=== PATIENT | female | born 1995 | race Two or more races ===

== ENCOUNTER 2021-05-05 00:34 | Inpatient (IN) | payer SELFPAY ==
[~2021-05-05] VITALS: Ht 162.6 cm; Wt 71.0 kg
[2021-05-05] MEDS ORDERED: IV RINGERS,LACTATED 1000ML 1,000 ML IV SCH ×2 (00:45→02:00)
[2021-05-05 01:13] LABS: AMORPHOUS SEDIMENT,UR PRESENT /HPF; BACTERIA,URINE MODERATE /HPF (0-FEW); RBC,URINE 20-40 /HPF (0-2); WBC,URINE TNTC /HPF (0-4)
[2021-05-05 01:15] LABS: AMPHETAMINE/METHAMPHETAMINE NEG (NEG); BARBITURATES NEG (NEG); BENZODIAZEPINES NEG (NEG); CANNABINOIDS NEG (NEG); COCAINE NEG (NEG); METHADONE NEG (NEG); OPIATES NEG (NEG); PHENCYCLIDINE NEG (NEG)
[2021-05-05] MEDS ORDERED: 0.9 % SODIUM CHLORIDE 10 ML DISP.SYRIN. IV PRN ×2 (02:00→12:30)
[2021-05-05] MEDS ORDERED: TERBUTALINE 1 MG/ML VIAL. SQ PRN (02:00)
[2021-05-05] MEDS ORDERED: LIDOCAINE 1% PF 30 ML VIAL. INJ PRN (02:00)
[2021-05-05] MEDS ORDERED: ACETAMINOPHEN 325 MG TABLET. PO PRN (02:00)
[2021-05-05] MEDS ORDERED: BUTORPHANOL 2 MG/ML VIAL. IVP PRN ×2 (02:00)
[2021-05-05] MEDS ORDERED: OXYTOCIN 30 UNIT/500 ML PREMIX 500 ML IV PRN ×3 (02:00→12:30)
[2021-05-05] MEDS ORDERED: ROPIVacaine 0.2% PF 10 ML VIAL. ONE ×2 (02:14→02:30)
[2021-05-05] MEDS ORDERED: L&D EPIDURAL SYRINGE 50 ML ONE (02:15)
[2021-05-05] MEDS ORDERED: fentaNYL PF VIAL 100 MCG/2 ML VIAL ONE (02:16)
[2021-05-05 02:17] LABS: BASO % 0 % (0-3); EOS % 0 % (0-3); HEMATOCRIT 40.1 % (36.0-47.0); HEMOGLOBIN 13.5 g/dL (12.0-15.5); LYMPH # 2.6 x10^3/uL (1.0-4.8); LYMPH % 14 % (24-48); MEAN CORPUSCULAR HEMOGLOBIN 30 pg (25-35); MEAN CORPUSCULAR HGB CONC 34 g/dL (31-37); MEAN CORPUSCULAR VOLUME 90 fL (79-100); MONO # 1.3 x10^3/uL (0.0-1.1); MONO % 7 % (0-9); NEUT # 15.4 x10^3/uL (1.8-7.7); NEUT % 79 % (31-73); PLATELET COUNT 309 x10^3/uL (140-400); RED BLOOD COUNT 4.46 x10^6/uL (3.50-5.40); RED CELL DISTRIBUTION WIDTH 13.5 % (11.5-14.5); WHITE BLOOD COUNT 19.5 x10^3/uL (4.0-11.0)
[2021-05-05] MEDS ORDERED: PENICILLIN G K 5,000,000 UNIT in IV DEXTROSE 5% 100ML 100 ML IV ONE (03:00)
[2021-05-05 04:21] LABS: % BANDS 4 % (0-9); % LYMPHS 14 % (24-48); % MONOS 6 % (0-10); % SEGS 76 % (35-66); PLT ESTIMATE ADEQUATE (ADEQUATE); TOXIC GRANULATION SLIGHT
[2021-05-05 06:25] VITALS: BP 105/71
[2021-05-05] MEDS ORDERED: PENICILLIN G K 2,500,000 UNIT in IV DEXTROSE 5% 50 ML IV SCH (07:00)
[2021-05-05 08:30] VITALS: BP 111/77
--- NOTE | 2021-05-05 10:08 | PDOC1 ---
COMPUTER GAME TESTER H&P Date of Admission: Date of Admission: May 05, 2021 at 03:26 History of Present Illness: EDC: 05/29/21 LMP: 08/22/20 25y @ 36.4 by L=24 presents to L&D with ctxs. The pt was found to be 4 cm on presentation. After an hour the pt progressed to 5 cm. A short time later the pt experienced SROM and ultimately delivered a short time later. PMH: PCOS, Anxiety and depression PSH: Denies Meds: PNV, Doxylamine, Pyridoxine All: NKDA OBHx: G1 SH: no tob, no EtOH FH: CAD Medications: Meds: Current Medications Medications (Trade) Dose Ordered Sig/Isaias Route PRN Reason Start Time Stop Time Status Last Admin Dose Admin Ringer's Solution 1,000 ml @ 125 mls/hr Q8H IV 05/05/21 00:45 05/05/21 09:58 DC 05/05/21 02:28 Butorphanol Tartrate (Stadol) 2 mg PRN Q1HR PRN IVP Severe labor pain 05/05/21 02:00 05/05/21 09:58 DC 05/05/21 02:40 Oxytocin 500 ml @ 0 mls/hr CONT PRN IV SEE I/O RECORD 05/05/21 02:00 05/05/21 09:58 DC 05/05/21 06:12 Penicillin G Potassium [id number] unit/Dextrose 100 ml @ 100 mls/hr 1X ONCE IV 05/05/21 03:00 05/05/21 03:59 DC 05/05/21 02:29 Allergies: Coded Allergies: No Known Drug Allergies (Unverified , 05/05/21) Physical Exam: Vital Signs: Vital Signs Date Time Temp Pulse Resp B/P (MAP) Pulse Ox O2 Delivery O2 Flow Rate FiO2 05/05/21 06:25 98.0 101 105/71 (82) 98 Room Air 98.0 05/05/21 02:40 22 PE: GENERAL: No apparent distress. Alert and oriented. HEENT: Head normocephalic, atraumatic. NECK: Supple LUNGS: Clear to auscultation. HEART: RRR, S1, S2 present, pulses intact ABDOMEN: Soft, positive bowel sounds. EXTREMITIES: No cyanosis or edema. NEUROLOGIC: Normal speech, normal tone PSYCHIATRIC: Normal affect, normal mood. SKIN: No ulceration. FHT: 140s +acels/occ variable decels/mLTV [place]: 1-2 min SVE: 490/0 Labs: Laboratory Tests Test 05/05/21 00:50 05/05/21 01:31 05/05/21 08:25 Urine Collection Type Unknown Urine Color (Auto) Yellow Urine Turbidity Hazy Urine pH (Auto) 5.5 (<5.0-8.0) Urine Specific [place] 1.014 (1.000-1.030) Urine Protein (Auto) Negative mg/dL (Negative) Urine Glucose (Auto)(UA) Negative mg/dL (Negative) Urine Ketones (Auto) Negative mg/dL (Negative) Urine Blood (Auto) Large (Negative) Urine Nitrite Negative (Negative) Urine Bilirubin (Auto) Negative (Negative) Urine Urobilinogen (Auto) Normal mg/dL (Normal) Urine Leukocyte Esterase (Auto) Large (Negative) Urine RBC 20-40 /HPF (0-2) Urine WBC Tntc /HPF (0-4) Urine Squamous Epithelial Cells Many /LPF Urine Amorphous Sediment Present /HPF Urine Bacteria Moderate /HPF (0-FEW) Urine Mucus Mod /LPF Urine Opiates Screen Neg (NEG) Urine Methadone Screen Neg (NEG) Urine Barbiturates Neg (NEG) Urine Phencyclidine Screen Neg (NEG) Urine Amphetamine/Methamphetamine Neg (NEG) Urine Benzodiazepines Screen Neg (NEG) Urine Cocaine Screen Neg (NEG) Urine Cannabinoids Screen Neg (NEG) Urine Ethyl Alcohol Neg (NEG) White Blood Count 19.5 x10^3/uL (4.0-11.0) H Red Blood Count 4.46 x10^6/uL (3.50-5.40) Hemoglobin 13.5 g/dL (12.0-15.5) Hematocrit 40.1 % (36.0-47.0) Mean Corpuscular Volume 90 fL (79-100) Mean Corpuscular Hemoglobin 30 pg (25-35) Mean Corpuscular Hemoglobin Concent 34 g/dL (31-37) Red Cell Distribution Width 13.5 % (11.5-14.5) Platelet Count 309 x10^3/uL (140-400) Neutrophils (%) (Auto) 79 % (31-73) H Lymphocytes (%) (Auto) 14 % (24-48) L Monocytes (%) (Auto) 7 % (0-9) Eosinophils (%) (Auto) 0 % (0-3) Basophils (%) (Auto) 0 % (0-3) Neutrophils # (Auto) 15.4 x10^3/uL (1.8-7.7) H Lymphocytes # (Auto) 2.6 x10^3/uL (1.0-4.8) Monocytes # (Auto) 1.3 x10^3/uL (0.0-1.1) H Eosinophils # (Auto) 0.0 x10^3/uL (0.0-0.7) Basophils # (Auto) 0.0 x10^3/uL (0.0-0.2) Segmented Neutrophils % 76 % (35-66) H Band Neutrophils % 4 % (0-9) Lymphocytes % 14 % (24-48) L Monocytes % 6 % (0-10) Toxic Granulation Slight Platelet Estimate Adequate (ADEQUATE) Treponema pallidum Antibody Nonreactive (Nonreactive) SARS-CoV-2 Antigen (Rapid) Negative (NEGATIVE) Laboratory Tests 05/05/21 01:31 Laboratory Tests 05/05/21 01:31 Assessment & Plan: A/P 25y @ 36.4 by L=24 1.) Active labor 2.) Brielle NI 3.) Flu vaccine given 12/17/20 4.) TDAP given 03/12/21 5.) Elevated GTT - 0 of 4 values of 3hr GTT elevated 6.) Fetus cat I FHT 7.) GBS pending will start PCN since CORNELIO CHOI MD May 05, 2021 10:08
--- NOTE | 2021-05-05 10:20 | PDOC4 ---
VAGINAL DELIVERY DATE DATE: 05/05/21 TIME: 10:18 TIME Patient delivered a viable male infant over intact perineum at 0326. Wt 5 lb 15 oz. Apgars 8/9. Placenta delivered spontaneously, intact with 3VC. No lacerations noted. Good hemostasis noted. 20 U of Pit given with IVF. EBL 200 cc. WEIGHT Weight [ ] CORNELIO CHOI MD May 05, 2021 10:20
[2021-05-05] MEDS ORDERED: PHENYLEPH/MINERAL OIL/PETROLAT RECTAL OINTMENT TUBE. RC PRN (12:30)
[2021-05-05] MEDS ORDERED: MMR per PROTOCOL. MC PRN (12:30)
[2021-05-05] MEDS ORDERED: MAGNESIUM HYDROXIDE 2,400 MG/30 ML ORAL.SUSP. PO PRN (12:30)
[2021-05-05] MEDS ORDERED: HYDROCORTISONE 1% TOPICAL OINTMENT 30GM TUBE. TP PRN (12:30)
[2021-05-05] MEDS ORDERED: oxyCODONE/APAP 5/325 1 TAB TABLET PO PRN (12:30)
[2021-05-05] MEDS ORDERED: ZOLPIDEM 5 MG TABLET. PO PRN (12:30)
[2021-05-05] MEDS ORDERED: BENZOCAINE 20% TOPICAL AEROSOL SPRAY 57GM CAN. TP PRN (12:30)
[2021-05-05] MEDS ORDERED: diphenhydrAMINE HCL 25 MG CAPSULE PO PRN (12:30)
[2021-05-05] MEDS ORDERED: MAG HYDROX/ALUMINUM HYD/SIMETH 30 ML ORAL.SUSP PO PRN (12:30)
[2021-05-05] MEDS ORDERED: TDaP (BOOSTRIX) per PROTOCOL. MC PRN (12:30)
[2021-05-05] MEDS ORDERED: SIMETHICONE 80 MG TAB.CHEW PO PRN (12:30)
[2021-05-05] MEDS: DOCUSATE SODIUM 100 MG CAPSULE. PO PRN (12:56)
[2021-05-05] MEDS: IBUPROFEN 400 MG TABLET. PO PRN (12:56)
[2021-05-05 13:00] VITALS: BP 105/68
[2021-05-05] MEDS: ACETAMINOPHEN 325 MG TABLET. PO PRN ×2 (13:17→19:37)
[2021-05-05 17:26] VITALS: BP 107/68
[2021-05-05 19:36] VITALS: BP 107/64
[2021-05-05 23:50] VITALS: BP 104/69
[2021-05-06] MEDS: ACETAMINOPHEN 325 MG TABLET. PO PRN (04:17)
[2021-05-06] MEDS: IBUPROFEN 400 MG TABLET. PO PRN ×3 (04:17→21:46)
[2021-05-06 04:20] VITALS: BP 98/59
[2021-05-06] MEDS ORDERED: FERROUS SULFATE 325 MG TABLET. PO SCH (08:00)
[2021-05-06 08:39] LABS: HEMATOCRIT 31.1 % (36.0-47.0); HEMOGLOBIN 10.2 g/dL (12.0-15.5); RED BLOOD COUNT 3.47 x10^6/uL (3.50-5.40); RED CELL DISTRIBUTION WIDTH 13.8 % (11.5-14.5); WHITE BLOOD COUNT 14.4 x10^3/uL (4.0-11.0)
[2021-05-06 08:40] VITALS: BP 109/75
[2021-05-06] MEDS: DOCUSATE SODIUM 100 MG CAPSULE. PO PRN (09:06)
[2021-05-06] MEDS: PRENATAL MULTIVITAMIN TABLET. PO SCH (09:06)
--- NOTE | 2021-05-06 11:43 | PDOC ---
WELDING MACHINE OPERATOR RESISTANCE PROGRESS NOTE Date of Service: DATE: 05/06/21 TIME: 11:42 Subjective: Pt with good pain control. Reed PO. Voiding. Minimal lochia. Objective: Vital Signs: Vital Signs Date Time Temp Pulse Resp B/P (MAP) Pulse Ox O2 Delivery O2 Flow Rate FiO2 05/05/21 08:30 98.5 114 18 111/77 (88) Room Air 98.5 05/05/21 12:26 98 Vital Signs Date Time Temp Pulse Resp B/P (MAP) Pulse Ox O2 Delivery O2 Flow Rate FiO2 05/06/21 08:40 98.2 104 20 109/75 (86) 99 Room Air 98.2 Labs: Laboratory Tests Test 05/06/21 08:10 White Blood Count 14.4 x10^3/uL (4.0-11.0) H Red Blood Count 3.47 x10^6/uL (3.50-5.40) L Hemoglobin 10.2 g/dL (12.0-15.5) L Hematocrit 31.1 % (36.0-47.0) L Mean Corpuscular Volume 90 fL (79-100) Mean Corpuscular Hemoglobin 29 pg (25-35) Mean Corpuscular Hemoglobin Concent 33 g/dL (31-37) Red Cell Distribution Width 13.8 % (11.5-14.5) Platelet Count 273 x10^3/uL (140-400) Laboratory Tests 05/06/21 08:10 Laboratory Tests 05/06/21 08:10 Physical Exam: GENERAL: No apparent distress. Alert and oriented. HEENT: Head normocephalic, atraumatic. NECK: Supple LUNGS: Clear to auscultation. HEART: RRR, S1, S2 present, pulses intact ABDOMEN: Soft, positive bowel sounds. EXTREMITIES: No cyanosis or edema. NEUROLOGIC: Normal speech, normal tone PSYCHIATRIC: Normal affect, normal mood. SKIN: No ulceration. FFNT below umb No C/C/E Assessment & Plan: A/P 25y PPD #1 s/p 1.) PP doing well 2.) Fever within first 24hrs of delivery, AF since 3.) Hgb 13.5 -> 10.2 4.) Brielle NI 5.) Flu vaccine given 12/17/20 6.) TDAP given 03/12/21 7.) Cont PP care CORNELIO CHOI MD May 06, 2021 11:43
[2021-05-06 15:55] VITALS: BP 107/75
[2021-05-06 21:35] VITALS: BP 107/73
[2021-05-07 05:25] VITALS: BP 100/68
[2021-05-07] MEDS: IBUPROFEN 400 MG TABLET. PO PRN ×2 (05:41→18:12)
[2021-05-07 08:30] VITALS: BP 110/77
[2021-05-07] MEDS: PRENATAL MULTIVITAMIN TABLET. PO SCH (09:13)
[2021-05-07 13:59] VITALS: BP 105/65
--- NOTE | 2021-05-07 17:35 | PDOC ---
OIL CHANGE TECHNICIAN PROGRESS NOTE Date of Service: DATE: 05/07/21 TIME: 17:33 Subjective: Doing well. Pumping/ for . Pain well managed. Tolerates activity, diet, and voiding without difficulty. Otherwise denies complaints. Objective: Objective: FF@U/2, scant lochia. Vital Signs: Vital Signs Date Time Temp Pulse Resp B/P (MAP) Pulse Ox O2 Delivery O2 Flow Rate FiO2 05/06/21 08:40 98.2 104 20 109/75 (86) 99 Room Air 98.2 Vital Signs Date Time Temp Pulse Resp B/P (MAP) Pulse Ox O2 Delivery O2 Flow Rate FiO2 05/07/21 13:59 98.5 93 18 105/65 (78) 98 Room Air 98.5 Physical Exam: GENERAL: No apparent distress. Alert and oriented. HEENT: Head normocephalic, atraumatic. NECK: Supple LUNGS: Clear to auscultation. HEART: RRR, S1, S2 present, pulses intact ABDOMEN: Soft, positive bowel sounds. EXTREMITIES: No cyanosis or edema. NEUROLOGIC: Normal speech, normal tone PSYCHIATRIC: Normal affect, normal mood. SKIN: No ulceration. Assessment & Plan: PPD#2. Discharge instructions, precautions, and warning signs reviewed. RTO 6 weeks for routine PP f/u. PEDRO MALAVE CNM May 07, 2021 17:35
[2021-05-07] MEDS ORDERED: IBUP-1027 PO (17:37)
[2021-05-07 18:37] VITALS: BP 97/59
--- NOTE | 2021-05-07 19:07 | NUR ---
Pt. was given verbal and written discharge instructions per [facility]. Pt. verbalized all questions and concerns about follow up and [facility] patient discharge instruction sheet and medication schedule. Pt. staying as boarder status and understands policy.
--- NOTE | 2021-05-08 14:33 | DS ---
DATE OF DISCHARGE: 05/07/2021 ADMISSION DIAGNOSES: 1. Intrauterine at 36 weeks and 4 days by LMP equal to a 24-week ultrasound. 2. Active labor. 3. Varicella nonimmune. 4. Status post flu vaccine. 5. Status post Tdap. 6. Elevated GTT with normal 3-hour GTT. 7. GBS pending. DISCHARGE DIAGNOSES: 1. Intrauterine at 36 weeks and 4 days by LMP equal to 24-week ultrasound. 2. Active labor. 3. Varicella nonimmune. 4. Status post flu vaccine. 5. Status post Tdap. 6. Elevated GTT with normal 3-hour GTT. 7. GBS negative.. PROCEDURE: Spontaneous vaginal delivery. BRIEF HOSPITAL COURSE: The patient is a 25-year-old 1, para 0, who presented to Labor and Delivery at 36 weeks and 4 days by LMP equal to 24-week ultrasound with contractions. The patient was found to be 4 cm on presentation. After an hour's time, the patient progressed to 4 cm. Shortly thereafter, the patient had spontaneous rupture of membranes and delivered shortly thereafter by vaginal delivery. See delivery note for full details. By day #2, the patient was meeting all discharge criteria and subsequently discharged home. Of note, the patient's hemoglobin on admission was 13.5 and after delivery, was found to be 10.2. DISCHARGE INSTRUCTIONS: The patient was told not to lift anything greater than 20 pounds, have pelvic rest for 6 weeks, not to drive on narcotics. CALL IF: The patient was call if she had fevers, chills, nausea, vomiting, abdominal pain or any additional questions or concerns. FOLLOWUP APPOINTMENT: The patient was to follow up on 06/13 at 1:20 p.m. for a visit. DISCHARGE MEDICATIONS: The patient was given a prescription for Motrin 800 mg, 30 pills. NAVEEN/ROBI DR: Pedro TID: [id number]
== END 2021-05-07 19:15 | disposition home or self-care (01) | DRG 806 ==
LOC: 3 SO LND 00:34 → OBSVTOIN 03:26 → 3 SO LND 06:30
PROVIDERS: ADMIT Obstetrics & Gynecology; ATTEND Obstetrics & Gynecology
PROC: 10E0XZZ Delivery of Products of Conception, External Approach (ICD-10-PCS; principal; 2021-05-05)
DX: O60.14X0 Preterm labor third trimester with preterm delivery third trimester, not applicable or unspecified (principal); O86.4 Pyrexia of unknown origin following delivery; Z37.0 Single live birth; O99.344 Other mental disorders complicating childbirth; Z3A.36 36 weeks gestation of pregnancy; Z82.49 Family history of ischemic heart disease and other diseases of the circulatory system; F32.A Depression, unspecified; F41.9 Anxiety disorder, unspecified; Z20.822 Contact with and (suspected) exposure to COVID-19
CPT/HCPCS: 36415; 80307; 81001; 85007; 85025; 85027; 86592; 86850; 86900; 86901; 87086; 87426; G0378; G0379; J0595; J2540; J2590; J2795; J7060; J7120; U0003